=== PATIENT | female | born 1990 | race Caucasian/White ===

== ENCOUNTER 2022-05-28 10:44 | Day surgery (SDC) | payer OTHER ==
[2022-05-28 11:26] VITALS: BMI 28.0
[2022-05-28] MEDS ORDERED: hydrALAZINE 20 MG/ML VIAL SLOW IVP PRN (12:01)
[2022-05-28] MEDS ORDERED: Lactated Ringer's 1,000 ML IV SCH ×2 (12:15→13:45)
[2022-05-28 12:40] LABS: Bilirubin Neg (Negative); Blood, Urine 25 (Negative); Clarity Cloudy (Clear); Glucose, Urine (Dipstick) Normal (Negative); Ketone, Urine Negative (Negative); Leukocyte 25 (Negative); Nitrite Negative (Negative); Protein, Urine (Dipstick) 30 mg/dl (Neg-Trace); Specific Gravity, Urine 1.015 (1.005-1.030)
[2022-05-28 12:44] LABS: Urine Culture Reflex No No
[2022-05-28 12:51] LABS: Bacteria/HPF Rare-Few HPF (None Seen); WBC/HPF 0-3 HPF (0-3)
[2022-05-28 14:04] LABS: Amphetamine Not Detected (NotDetected); Barbiturates Screen Not Detected (NotDetected); Benzodiazepine Screen Not Detected (NotDetected); Cocaine Metabolite Screen Not Detected (NotDetected); Methadone Not Detected (NotDetected); Methamphetamine Not Detected (NotDetected); Opiate Screen Not Detected (NotDetected); Oxycodone Screen Not Detected (NotDetected); Phencyclidine (PCP) Not Detected (NotDetected); THC/Cannabinoid Screen Detected (NotDetected); Tricyclic Screen Not Detected (NotDetected)
[2022-05-28] MEDS ORDERED: Terbutaline Sulfate 1 MG/ML VIAL ONE (15:04)
[2022-05-28] MEDS ORDERED: Terbutaline Sulfate 1 MG/ML VIAL SC SCH (16:00)
[2022-05-29 12:33] LABS: Chlamydia by PCR Not Detected (NotDetected); GC by PCR Not Detected (NotDetected)
== END 2022-05-28 15:24 | disposition home health service (06) ==
LOC: CSHLD/OP 10:44
PROVIDERS: ATTEND Obstetrics & Gynecology
DX: O47.9 False labor, unspecified (principal); Z3A.00 Weeks of gestation of pregnancy not specified
CPT/HCPCS: 36415; 51701; 80306; 81001; 87086; 87480; 87491; 87510; 87591; 87660; 96360; 96361; 96372; 99285; J3105

== ENCOUNTER 2022-07-15 14:43 | Day surgery (SDC) | payer OTHER ==
[2022-07-15 15:19] VITALS: BMI 27.8
[2022-07-15] MEDS ORDERED: hydrALAZINE 20 MG/ML VIAL SLOW IVP PRN (15:52)
[2022-07-15] MEDS ORDERED: Lactated Ringer's 1,000 ML IV SCH (16:45)
[2022-07-15] MEDS ORDERED: Acetaminophen 500 MG TAB PO SCH (17:00)
[2022-07-15] MEDS ORDERED: hydrOXYzine 25 MG TAB PO SCH (17:00)
== END 2022-07-15 18:25 | disposition home or self-care (01) ==
LOC: CSHLD/OP 14:43
PROVIDERS: ATTEND Student in an Organized Health Care Education/Training Program
DX: O47.1 False labor at or after 37 completed weeks of gestation (principal); O23.593 Infection of other part of genital tract in pregnancy, third trimester; O99.333 Smoking (tobacco) complicating pregnancy, third trimester; F17.210 Nicotine dependence, cigarettes, uncomplicated; Z3A.38 38 weeks gestation of pregnancy; Z79.82 Long term (current) use of aspirin; Z79.899 Other long term (current) drug therapy; Z98.890 Other specified postprocedural states
CPT/HCPCS: 87480; 87510; 87660